=== PATIENT | male | born 1960 | race Caucasian/White ===

== ENCOUNTER 2016-06-25 01:45 | Emergency (ER) | payer OTHER ==
--- NOTE | 2016-06-25 03:24 | ED NURSING NOTES ---
Clinical Report - Nurses [facility] [address] [place] [address] 06/25/2016 1:47 Patient: CLAUDIA BELTRAN TRIAGE Chief Complaint: URINARY RETENTION and DIFFICULTY VOIDING and UNABLE TO VOID. --02:06 Khurram Choi R.N. 02:02 06/25/16. BP: 154/83. HR: 96. RR: 16. O2 saturation: 97%. Temp: 99.2 F. --02:06 Khurram Choi R.N. Weight: 79.3 kg stated. Height/Length: 70 inches Per Patient. BMI: 25.1. --02:06 Khurram Choi R.N. Medications None. --02:04 Khurram Choi R.N. Allergies No Known Drug Allergy. --02:05 Khurram Choi R.N. History Onset. (3 days ago). 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 SOCIAL HX: Alcohol use; consumes three beers a week. FALL RISK ASSESSMENT: Fall risk assessment completed. No fall risk identified. NUTRITIONAL RISK ASSESSMENT: The nutritional risk assessment revealed no deficiencies. FUNCTIONAL ASSESSMENT: Functional assessment: no impairments noted. LEARNING NEEDS ASSESSMENT: The learning needs assessment revealed no barriers. SKIN INTEGRITY ASSESSMENT: Skin integrity risk assessment completed. No skin integrity risk identified. --02:06 Khurram Choi R.N. Interventions ID band on patient. --02:06 Khurram Choi R.N. PHYSICAL ASSESSMENT Ambulatory to room. GENERAL / NEURO / PSYCH: Alert. Oriented X 4. Appears in no acute distress. HEENT: Mucous membranes are pink. RESPIRATORY: Respirations not labored. Breath sounds within normal limits. CVS: Normal heart rate and rhythm. Capillary refill less than 2 seconds. GI / : Abdomen soft. Bowel sounds within normal limits. SKIN: Skin is warm and dry. --02:07 Khurram Choi R.N. NURSING PROGRESS NOTES Patient gowned. Head of bed elevated. Reassurance given. Patient identifiers checked. Call light placed in reach. Bed placed in lowest position. Brakes of bed on. --02:07 Khurram Choi R.N. ( BLADDER SCANNER [id number]). --02:46 Arnold Langley ER Collections Professional 03:08 06/25/2016 lidocaine urojet * Topical 5 ml intraurethral numbing for catheterization --03:08 Khurram Choi R.N. Patient ID band checked for patient name and birthdate: patient confirmed. Instructions provided to collect clean catch urine and patient verbalized understanding. Catheterized urine collected with return of orange-colored urine, blood clots noted; sample sent to lab for urinalysis and culture. Specimen labeled in the presence of the patient (1100). --03:11 Khurram Choi R.N. DISPOSITION / DISCHARGE Departure time: 0410. Condition at departure: improved. No learning barriers present. Discharge instructions provided and reviewed with the patient. Reviewed warnings. Reviewed medication(s). Treatments reviewed. Reviewed referral to a urologist for followup. Patient verbalized understanding. Written instructions provided in Estonian. The patient was discharged by the physician. He was discharged home and unaccompanied at time of discharge. He left the Emergency Department ambulatory and via private vehicle. Patient driving. --04:11 Khurram Choi R.N. 04:10 06/25/16. BP: 144/84. HR: 88. RR: 18. O2 saturation: 99%. Temp: 98 F. Pain level now 06/30. --04:11 Khurram Choi R.N. Locked/Released at 06/25/2016 4:12 by Khurram Choi R.N.
--- NOTE | 2016-06-25 03:24 | ED NURSING NOTES ---
Clinical Report - Nurses [facility] [address] [place] [address] 06/25/2016 1:47 Patient: CLAUDIA BELTRAN TRIAGE Chief Complaint: URINARY RETENTION and DIFFICULTY VOIDING and UNABLE TO VOID. --02:06 Khurram Choi R.N. 02:02 06/25/16. BP: 154/83. HR: 96. RR: 16. O2 saturation: 97%. Temp: 99.2 F. --02:06 Khurram Choi R.N. Weight: 79.3 kg stated. Height/Length: 70 inches Per Patient. BMI: 25.1. --02:06 Khurram Choi R.N. Medications None. --02:04 Khurram Choi R.N. Allergies No Known Drug Allergy. --02:05 Khurram Choi R.N. History Onset. (3 days ago). 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 SOCIAL HX: Alcohol use; consumes three beers a week. FALL RISK ASSESSMENT: Fall risk assessment completed. No fall risk identified. NUTRITIONAL RISK ASSESSMENT: The nutritional risk assessment revealed no deficiencies. FUNCTIONAL ASSESSMENT: Functional assessment: no impairments noted. LEARNING NEEDS ASSESSMENT: The learning needs assessment revealed no barriers. SKIN INTEGRITY ASSESSMENT: Skin integrity risk assessment completed. No skin integrity risk identified. --02:06 Khurram Choi R.N. Interventions ID band on patient. --02:06 Khurram Choi R.N. PHYSICAL ASSESSMENT Ambulatory to room. GENERAL / NEURO / PSYCH: Alert. Oriented X 4. Appears in no acute distress. HEENT: Mucous membranes are pink. RESPIRATORY: Respirations not labored. Breath sounds within normal limits. CVS: Normal heart rate and rhythm. Capillary refill less than 2 seconds. GI / : Abdomen soft. Bowel sounds within normal limits. SKIN: Skin is warm and dry. --02:07 Khurram Choi R.N. NURSING PROGRESS NOTES Patient gowned. Head of bed elevated. Reassurance given. Patient identifiers checked. Call light placed in reach. Bed placed in lowest position. Brakes of bed on. --02:07 Khurram Choi R.N. ( BLADDER SCANNER [id number]). --02:46 Arnold Langley ER Medical Staff Assistant 03:08 06/25/2016 lidocaine urojet * Topical 5 ml intraurethral numbing for catheterization --03:08 Khurram Choi R.N. Patient ID band checked for patient name and birthdate: patient confirmed. Instructions provided to collect clean catch urine and patient verbalized understanding. Catheterized urine collected with return of orange-colored urine, blood clots noted; sample sent to lab for urinalysis and culture. Specimen labeled in the presence of the patient (1100). --03:11 Khurram Choi R.N. DISPOSITION / DISCHARGE Departure time: 0410. Condition at departure: improved. No learning barriers present. Discharge instructions provided and reviewed with the patient. Reviewed warnings. Reviewed medication(s). Treatments reviewed. Reviewed referral to a urologist for followup. Patient verbalized understanding. Written instructions provided in Libyan. The patient was discharged by the physician. He was discharged home and unaccompanied at time of discharge. He left the Emergency Department ambulatory and via private vehicle. Patient driving. --04:11 Khurram Choi R.N. 04:10 06/25/16. BP: 144/84. HR: 88. RR: 18. O2 saturation: 99%. Temp: 98 F. Pain level now 06/30. --04:11 Khurram Choi R.N. Locked/Released at 06/25/2016 4:12 by Khurram Choi R.N.
--- NOTE | 2016-06-25 03:24 | ED ORDER SUMMARY ---
..... Patient: CLAUDIA BELTRAN OrderSheet [facility] VisitID: [id number] [place] [address] 56y, M Registration Date/Time: 06/25/2016 ORDER SHEET Weight: 79.3 kg (stated) Allergies: No Known Drug Allergy GENERAL ORDERS: UA-Culture if indicated Urgent (02:02 06/25/2016 Evelyn WU) (Ack 2:06 Marcellus) (3:04 Robert R.N.) - (Straight cath with measurement of output) (02:31 06/25/2016 Evelyn WU) (3:04 Robert R.N.) MEDICATION ORDERS: - (Urojet 1 package to bedside) (02:35 06/25/2016 Evelyn WU) (3:08 Robert R.N.) IV FLUIDS: ORDER SHEET NOTES: [Electronically signed by Khurram Choi R.N. (04:12 06/25/2016)] [Electronically signed by Radha Montenegro MD (13:22 06/29/2016)] [Electronically locked/signed by Khurram Choi R.N. (04:12 06/25/2016)]
--- NOTE | 2016-06-25 03:24 | ED ORDER SUMMARY ---
..... Patient: CLAUDIA BELTRAN OrderSheet [facility] VisitID: [id number] [place] [address] 56y, M Registration Date/Time: 06/25/2016 ORDER SHEET Weight: 79.3 kg (stated) Allergies: No Known Drug Allergy GENERAL ORDERS: UA-Culture if indicated Urgent (02:02 06/25/2016 Evelyn WU) (Ack 2:06 Marcellus) (3:04 Robert R.N.) - (Straight cath with measurement of output) (02:31 06/25/2016 Evelyn WU) (3:04 Robert R.N.) MEDICATION ORDERS: - (Urojet 1 package to bedside) (02:35 06/25/2016 Evelyn WU) (3:08 Robert R.N.) IV FLUIDS: ORDER SHEET NOTES: [Electronically signed by Khurram Choi R.N. (04:12 06/25/2016)] [Electronically signed by Radha Montenegro MD (13:22 06/29/2016)] [Electronically locked/signed by Khurram Choi R.N. (04:12 06/25/2016)]
--- NOTE | 2016-06-25 03:24 | ED CLINICAL REPORT ---
Clinical Report - Physicians/Mid Levels [facility] [address] [place] [address] 06/25/2016 1:47 Patient: CLAUDIA BELTRAN Time Seen: 02:03. Arrived- By private vehicle. Historian- patient. HISTORY OF PRESENT ILLNESS Chief Complaint: URINARY RETENTION. This started yesterday and is still present. The problem is described as severe. No penile discharge, urinary frequency, genital lesion, testicular pain or urgency of urination. No flank pain, inguinal swelling or problem with the foreskin. He has had discomfort with urination (PT was dx with a UTI recently, and has had mild hematuria since.). He has been unable to void. Sexual history is noncontributory. Similar symptoms previously: None. Recent medical care: The patient was seen recently at another facility in a clinic. REVIEW OF SYSTEMS No fever, chills, flank pain, vomiting or diarrhea. No black stools, bloody stools, headache, sore throat or blurred vision. No chest pain, difficulty breathing, cough, joint pain or skin rash. No back pain. The patient has had hematuria. The patient has had abdominal pain (discomfort, since urinary retention began). All systems otherwise negative, except as recorded above. PAST HISTORY Problems: no known problems. Additional Surgeries: no known surgeries. Medications: None. Allergies: No Known Drug Allergy. SOCIAL HISTORY Never smoker. Alcohol use. No drug use. ADDITIONAL NOTES The nursing notes have been reviewed. PHYSICAL EXAM Vital Signs: 06/25/2016 02:02 BP: 154/83. HR: 96. RR: 16. O2 saturation: 97%. Temp: 99.2 F. Have been reviewed. Appearance: Alert. Oriented X3. No acute distress. ENT: Normal external inspection. Neck: Neck supple. CVS: Heart sounds normal. Respiratory: No respiratory distress. Breath sounds normal. Abdomen: Soft. Moderate tenderness in the suprapubic area. No guarding or rebound tenderness. No mass. Distention. Back: Normal external inspection. No CVA tenderness. Skin: Skin warm and dry. Normal skin color. No rash. Normal skin turgor. Extremities: Extremities exhibit normal ROM. No lower extremity edema. Neuro: Oriented X 3. No motor deficit. No sensory deficit. LABS, X-RAYS, AND EKG Pulse Oximetry: 06/25/2016 02:02 O2 saturation: 97%. (FIO2 - room air). Interpretation: normal. PROGRESS AND PROCEDURES Course of Care: 1100 cc grossly bloody urine obtained by straight cath, with complete resolution of sx. Pt was offered a Henry with leg bag, but preferred to see if he could pass urine on his own after this. Pt was advised to continue his abx, as directed. Patient counseled in person regarding the patient's stable condition, test results, diagnosis and need for follow-up. Concerns were addressed. Old medical records reviewed. Disposition: Discharged. Condition: stable and improved. CLINICAL IMPRESSION Acute urinary tract infection with cystitis. Urinary retention. INSTRUCTIONS Drink plenty of fluids. Warnings: GENERAL WARNINGS: Return or contact your physician immediately if your condition worsens or changes unexpectedly, if not improving as expected, or if other problems arise. Understanding of the discharge instructions verbalized by patient. Follow-up with: Victor Hugo Rivero MD, Urology, , [address] [address]; Cale Craft MD, Urology, , [address] [facility], [facility] Follow up in three days if not better. (Electronically signed by Radha Montenegro MD 06/29/2016 13:22)
--- NOTE | 2016-06-25 03:24 | ED CLINICAL REPORT ---
Clinical Report - Physicians/Mid Levels [facility] [address] [place] [address] 06/25/2016 1:47 Patient: CLAUDIA BELTRAN Time Seen: 02:03. Arrived- By private vehicle. Historian- patient. HISTORY OF PRESENT ILLNESS Chief Complaint: URINARY RETENTION. This started yesterday and is still present. The problem is described as severe. No penile discharge, urinary frequency, genital lesion, testicular pain or urgency of urination. No flank pain, inguinal swelling or problem with the foreskin. He has had discomfort with urination (PT was dx with a UTI recently, and has had mild hematuria since.). He has been unable to void. Sexual history is noncontributory. Similar symptoms previously: None. Recent medical care: The patient was seen recently at another facility in a clinic. REVIEW OF SYSTEMS No fever, chills, flank pain, vomiting or diarrhea. No black stools, bloody stools, headache, sore throat or blurred vision. No chest pain, difficulty breathing, cough, joint pain or skin rash. No back pain. The patient has had hematuria. The patient has had abdominal pain (discomfort, since urinary retention began). All systems otherwise negative, except as recorded above. PAST HISTORY Problems: no known problems. Additional Surgeries: no known surgeries. Medications: None. Allergies: No Known Drug Allergy. SOCIAL HISTORY Never smoker. Alcohol use. No drug use. ADDITIONAL NOTES The nursing notes have been reviewed. PHYSICAL EXAM Vital Signs: 06/25/2016 02:02 BP: 154/83. HR: 96. RR: 16. O2 saturation: 97%. Temp: 99.2 F. Have been reviewed. Appearance: Alert. Oriented X3. No acute distress. ENT: Normal external inspection. Neck: Neck supple. CVS: Heart sounds normal. Respiratory: No respiratory distress. Breath sounds normal. Abdomen: Soft. Moderate tenderness in the suprapubic area. No guarding or rebound tenderness. No mass. Distention. Back: Normal external inspection. No CVA tenderness. Skin: Skin warm and dry. Normal skin color. No rash. Normal skin turgor. Extremities: Extremities exhibit normal ROM. No lower extremity edema. Neuro: Oriented X 3. No motor deficit. No sensory deficit. LABS, X-RAYS, AND EKG Pulse Oximetry: 06/25/2016 02:02 O2 saturation: 97%. (FIO2 - room air). Interpretation: normal. PROGRESS AND PROCEDURES Course of Care: 1100 cc grossly bloody urine obtained by straight cath, with complete resolution of sx. Pt was offered a Henry with leg bag, but preferred to see if he could pass urine on his own after this. Pt was advised to continue his abx, as directed. Patient counseled in person regarding the patient's stable condition, test results, diagnosis and need for follow-up. Concerns were addressed. Old medical records reviewed. Disposition: Discharged. Condition: stable and improved. CLINICAL IMPRESSION Acute urinary tract infection with cystitis. Urinary retention. INSTRUCTIONS Drink plenty of fluids. Warnings: GENERAL WARNINGS: Return or contact your physician immediately if your condition worsens or changes unexpectedly, if not improving as expected, or if other problems arise. Understanding of the discharge instructions verbalized by patient. Follow-up with: Victor Hugo Rivero MD, Urology, , [address] [address]; Cale Craft MD, Urology, , [address] [facility], [facility] Follow up in three days if not better. (Electronically signed by Radha Montenegro MD 06/29/2016 13:22)
--- NOTE | 2016-06-29 13:23 | ED MAR SUMMARY ---
..... Medication Administration Record [facility] [address] [place] [address] Patient: CLAUDIA BELTRAN Visit ID: [id number] 56y, M Weight: 79.3 kg Height/Length: 70 in BMI: 25.1 ALLERGIES: No Known Drug Allergy Given 03:08 06/25/2016 Khurram Choi R.N. Medication Administered: lidocaine urojet *, Dose: 5 ml * Topical. Medication Ordered: - (Urojet 1 package to bedside).
--- NOTE | 2016-06-29 13:23 | ED MED RECONCILIATION SUMMARY ---
Patient: CLAUDIA BELTRAN Medication Reconciliation Report [facility] VisitID: [id number] [address] [place] [address] 56y, M Registration Date/Time: 06/25/2016 Weight: 79.3 kg Height/Length: 70 in. BMI: 25.1 ALLERGIES: No Known Drug Allergy The patient's Home Medications are listed below: NONE. The source(s) of the original Home Medication information: Not obtained. The following Medications were given to the patient in the Emergency Department: lidocaine urojet Topical 5 ml, administered: 06/25/2016 3:08:00 AM The following Medications were prescribed to the patient: None.
--- NOTE | 2016-06-29 13:23 | ED DISCHARGE INSTRUCTIONS ---
Patient: CLAUDIA BELTRAN General Instructions [facility] VisitID: [id number] [place] [address] 56y, M Registration Date/Time: 06/25/2016 Acute urinary tract infection with cystitis. Urinary retention. INSTRUCTIONS Drink plenty of fluids. Warnings: GENERAL WARNINGS: Return or contact your physician immediately if your condition worsens or changes unexpectedly, if not improving as expected, or if other problems arise. Understanding of the discharge instructions verbalized by patient. Follow-up with: Victor Hugo Rivero MD, Urology, , [address] [facility], [id number]; Cale Craft MD, Urology, , [address] [facility], [address] Follow up in three days if not better. ADDITIONAL INFORMATION Urinary Retention (Male) Urinary retention means that you are unable to pass urine, even though your bladder is full. The most common cause for this in males is a blockage of the bladder outlet by an enlarged prostate gland or a bladder infection. Certain medicines can also cause this problem. This condition is treated by insertion of a catheter into the bladder to drain the urine. This provides immediate relief. The catheter may need to remain in place for a few days to prevent a recurrence. The catheter has a balloon on the tip which was inflated after insertion. This prevents the catheter from falling out. Home Care: If an antibiotic was prescribed to treat a bladder infection, be sure to take it until finished, even if you are feeling better before it is all gone. If a catheter was left in place, it is important to keep bacteria from getting into the collection bag. Do not disconnect the catheter from the collection bag. Use a leg band to secure the drainage tube, so it does not pull on the catheter. Drain the collection bag when it becomes full using the drain spout at the bottom of the bag. Do not try to pull or remove your catheter. This will injure your urethra. It must be removed by a doctor or nurse. Follow Up with your doctor as advised. If a catheter was left in place, it can usually be removed within 3-7 days. Some conditions require that the catheter remains in longer. Follow up with your doctor to determine the right time for you. Get Prompt Medical Attention if any of the following occur: Fever of 100.4F (38C) or higher, or as directed by your healthcare provider Bladder or lower abdominal pain or fullness Abdominal swelling, nausea, vomiting or back pain Blood or urine leakage around the catheter Bloody urine coming from the catheter (if a new symptom) Weakness, dizziness or fainting Confusion or change in usual level of alertness If a catheter was left in place, return if: Catheter falls out Catheter stops draining for 6 hours You have been given the following additional information: Urinary Retention, Male (Electronically signed by Radha Montenegro MD 06/29/2016 13:22)
--- NOTE | 2016-06-29 13:23 | ED DISCHARGE INSTRUCTIONS ---
Patient: CLAUDIA BELTRAN General Instructions [facility] VisitID: [id number] [place] [address] 56y, M Registration Date/Time: 06/25/2016 Acute urinary tract infection with cystitis. Urinary retention. INSTRUCTIONS Drink plenty of fluids. Warnings: GENERAL WARNINGS: Return or contact your physician immediately if your condition worsens or changes unexpectedly, if not improving as expected, or if other problems arise. Understanding of the discharge instructions verbalized by patient. Follow-up with: Victor Hugo Rivero MD, Urology, , [address] [facility], [id number]; Cale Craft MD, Urology, , [address] [facility], [id number] Follow up in three days if not better. ADDITIONAL INFORMATION Urinary Retention (Male) Urinary retention means that you are unable to pass urine, even though your bladder is full. The most common cause for this in males is a blockage of the bladder outlet by an enlarged prostate gland or a bladder infection. Certain medicines can also cause this problem. This condition is treated by insertion of a catheter into the bladder to drain the urine. This provides immediate relief. The catheter may need to remain in place for a few days to prevent a recurrence. The catheter has a balloon on the tip which was inflated after insertion. This prevents the catheter from falling out. Home Care: If an antibiotic was prescribed to treat a bladder infection, be sure to take it until finished, even if you are feeling better before it is all gone. If a catheter was left in place, it is important to keep bacteria from getting into the collection bag. Do not disconnect the catheter from the collection bag. Use a leg band to secure the drainage tube, so it does not pull on the catheter. Drain the collection bag when it becomes full using the drain spout at the bottom of the bag. Do not try to pull or remove your catheter. This will injure your urethra. It must be removed by a doctor or nurse. Follow Up with your doctor as advised. If a catheter was left in place, it can usually be removed within 3-7 days. Some conditions require that the catheter remains in longer. Follow up with your doctor to determine the right time for you. Get Prompt Medical Attention if any of the following occur: Fever of 100.4F (38C) or higher, or as directed by your healthcare provider Bladder or lower abdominal pain or fullness Abdominal swelling, nausea, vomiting or back pain Blood or urine leakage around the catheter Bloody urine coming from the catheter (if a new symptom) Weakness, dizziness or fainting Confusion or change in usual level of alertness If a catheter was left in place, return if: Catheter falls out Catheter stops draining for 6 hours You have been given the following additional information: Urinary Retention, Male (Electronically signed by Radha Montenegro MD 06/29/2016 13:22)
--- NOTE | 2016-06-29 13:23 | ED MED RECONCILIATION SUMMARY ---
Patient: CLAUDIA BELTRAN Medication Reconciliation Report [facility] VisitID: [id number] [address] [place] [address] 56y, M Registration Date/Time: 06/25/2016 Weight: 79.3 kg Height/Length: 70 in. BMI: 25.1 ALLERGIES: No Known Drug Allergy The patient's Home Medications are listed below: NONE. The source(s) of the original Home Medication information: Not obtained. The following Medications were given to the patient in the Emergency Department: lidocaine urojet Topical 5 ml, administered: 06/25/2016 3:08:00 AM The following Medications were prescribed to the patient: None.
--- NOTE | 2016-06-29 13:23 | ED MAR SUMMARY ---
..... Medication Administration Record [facility] [address] [place] [address] Patient: CLAUDIA BELTRAN Visit ID: [id number] 56y, M Weight: 79.3 kg Height/Length: 70 in BMI: 25.1 ALLERGIES: No Known Drug Allergy Given 03:08 06/25/2016 Khurram Choi R.N. Medication Administered: lidocaine urojet *, Dose: 5 ml * Topical. Medication Ordered: - (Urojet 1 package to bedside).
== END 2016-06-25 04:00 | disposition home or self-care (01) ==
LOC: ED SRH 01:45
DX: N30.00 Acute cystitis without hematuria (principal); R33.9 Retention of urine, unspecified; Z79.2 Long term (current) use of antibiotics
CPT/HCPCS: 90004; 90070; 90469; 91672

== ENCOUNTER 2016-06-25 19:52 | Emergency (ER) | payer OTHER ==
--- NOTE | 2016-06-25 21:02 | ED ORDER SUMMARY ---
..... Patient: CLAUDIA BELTRAN OrderSheet [facility] VisitID: [id number] [place] [address] 56y, M Registration Date/Time: 06/25/2016 ORDER SHEET Weight: 79.3 kg (stated) Allergies: No Known Drug Allergy GENERAL ORDERS: UA-Culture if indicated Urgent (20:20 06/25/2016 MWinterer R.N. per protocol) (20:30 Ashley R.NCaroline) Henry Catheter (20:49 06/25/2016 Twan WU) (Ack 20:55 MWinterer R.N.) (21:05 MWinterer R.N.) MEDICATION ORDERS: IV FLUIDS: ORDER SHEET NOTES: [Electronically signed by Rocío Dyson R.N. (21:53 06/25/2016)] [Electronically signed by Eb Amezquita MD (11:12 06/26/2016)] [Electronically locked/signed by Rocío Dyson R.N. (21:53 06/25/2016)]
--- NOTE | 2016-06-25 21:02 | ED NURSING NOTES ---
Clinical Report - Nurses [facility] [place] [address] 06/25/2016 19:52 Patient: CLAUDIA BELTRAN TRIAGE Acuity: LEVEL 3. Chief Complaint: URINARY RETENTION. Alert. No acute distress. SEPSIS SCREEN: Sepsis Screen. Negative (no infection suspected/documented). --20:06 Rocío Dyson R.N. 20:00 06/25/16. BP: 168/84. HR: 106. RR: 20. O2 saturation: 99%. Temp: 98.3 F (oral). Pain level now: 10/28. --20:06 Rocío Dyson R.N. Weight: 79.3 kg stated. Height/Length: 70 inches Per Patient. BMI: 25.1. --20:03 Rocío Dyson R.N. Medications Bactrim Oral. --20:02 Rocío Dyson R.N. Medication/allergy information source: the patient. --20:06 Rocío Dyson R.N. Allergies No Known Drug Allergy. --20:02 Rocío Dyson R.N. History Arrived by private vehicle. Historian: patient. Unaccompanied. Primary physician (heather). This started today. SOCIAL HX: Never smoker. Occasional alcohol use. No drug use. FALL RISK ASSESSMENT: Fall risk assessment completed. No fall risk identified. NUTRITIONAL RISK ASSESSMENT: The nutritional risk assessment revealed no deficiencies. FUNCTIONAL ASSESSMENT: Functional assessment: no impairments noted. LEARNING NEEDS ASSESSMENT: The learning needs assessment revealed no barriers. SKIN INTEGRITY ASSESSMENT: Skin integrity risk assessment completed. No skin integrity risk identified. --20:06 Rocío Dyson R.N. PROBLEMS: UTI - Urinary Tract Infection [RuleOut]. --20:54 Eb Amezquita MD Urinary Retention [RuleOut]. --20:54 Eb Amezquita MD The following entry was modified by Eb Amezquita MD, 20:54 <<STRICKEN ENTRY-- UTI - Urinary Tract Infection. --03:21 Rocío Dyson R.N. --END STRIKE>> The following entry was modified by Eb Amezquita MD, 20:54 <<STRICKEN ENTRY-- Urinary Retention. --03:21 Rocío Dyson R.N. --END STRIKE>>. Assessment GENERAL / NEURO / PSYCH: Alert. Oriented X 4. Appears in no acute distress. [place] Coma Scale: 15- eyes open spontaneously (4); best verbal response- oriented x 4 (5); best motor response- obeys commands (6). Patient appears calm and cooperative. RESPIRATORY: Respirations not labored. CVS: Capillary refill less than 2 seconds. GI / : Abdomen soft and nontender. SKIN: Mucous membranes are pink. Skin is warm and dry. --20:06 Rocío Dyson R.N. Interventions ID band on patient. To treatment room. --20: Rocío Dyson R.N. PHYSICAL ASSESSMENT 20:06/25/16. Ambulatory to room. GENERAL / NEURO / PSYCH: Alert. Oriented X 4. Appears in no acute distress. HEENT: Mucous membranes are pink. RESPIRATORY: Respirations not labored. CVS: Capillary refill less than 2 seconds. GI / : Abdomen soft. SKIN: Skin is warm and dry. --20: Rocío Dyson R.N. NURSING PROGRESS NOTES 20:06/25/16. Patient gowned. Reassurance given. Two patient identifiers checked. Call light placed in reach. Side rails up x 1. Bed placed in lowest position. Brakes of bed on. Patient ready for evaluation- chart flagged. --20:07 Rocío Dyson R.N. 20:06/25/16. ( Bladder scan result: 1000 mL). --20: Rocío Dyson R.N. 20:06/25/16. Patient ID band checked for patient name and birthdate. Clean catch urine collected with return of yellow-colored clear urine. Specimen labeled in the presence of the patient. ( Pt ambulated to and provided urine sample. Pt states "I was able to pee a fair amount."). --20:22 Rocío Dyson R.N. 14 fr coude catheter placed. Reason for indwelling catheter: retention. During procedure hand hygiene observed and sterile equipment and aseptic technique used. Return of 600 mL yellow-colored urine; attached to leg bag. He tolerated procedure fair (x 2 RNs, 15 minutes). --21:06 Leonardo Quintanilla R.N. DISPOSITION / DISCHARGE Departure time: 21:10 Jun 25 2016. Condition at departure: improved and stable. No learning barriers present. Discharge instructions provided and reviewed with the patient. Reviewed medication(s) side effects, precautions, dosing and course information. Prescription(s) given to the patient. Patient verbalized understanding. Written instructions provided in Barbadian. The patient was discharged by the physician. He was discharged home. He left the Emergency Department ambulatory and via private vehicle. Patient driving. --21:51 Rocío Dyson R.N. 21:49 06/25/16. BP: 152/87. HR: 102. RR: 12. O2 saturation: 98% on room air. Temp: 98.8 F (oral). Pain level now: 08/28. --21:51 Rocío Dyson R.N. Locked/Released at 06/25/2016 21:53 by Rocío Dyson R.N.
--- NOTE | 2016-06-25 21:02 | ED ORDER SUMMARY ---
..... Patient: CLAUDIA BELTRNA OrderSheet [facility] VisitID: [id number] [place] [address] 56y, M Registration Date/Time: 06/25/2016 ORDER SHEET Weight: 79.3 kg (stated) Allergies: No Known Drug Allergy GENERAL ORDERS: UA-Culture if indicated Urgent (20:20 06/25/2016 MWinterer R.N. per protocol) (20:30 Ashley R.NCaroline) Henry Catheter (20:49 06/25/2016 Twan WU) (Ack 20:55 MWinterer R.N.) (21:05 MWinterer R.N.) MEDICATION ORDERS: IV FLUIDS: ORDER SHEET NOTES: [Electronically signed by Rocío Dyson R.N. (21:53 06/25/2016)] [Electronically signed by Eb Amezquita MD (11:12 06/26/2016)] [Electronically locked/signed by Rocío Dyson R.N. (21:53 06/25/2016)]
--- NOTE | 2016-06-25 21:02 | ED CLINICAL REPORT ---
Clinical Report - Physicians/Mid Levels [facility] [address] [place] [address] 06/25/2016 19:52 Patient: CLAUDIA BELTRAN Time Seen: 20:02. Arrived- By private vehicle. Historian- patient. HISTORY OF PRESENT ILLNESS Chief Complaint: URINARY RETENTION. This started last night and is still present. The problem is described as severe. It was abrupt in onset and has been intermittent and waxing/waning. The patient has had discomfort with urination and urgency of urination and been unable to void, and voiding small amounts. The patient has had urinary frequency. (patient was seen at another clinic last week and was diagnosed with urinary tract infection and was on Bactrim. However in the middle of the night he had a strong urge to void but was not able to do so. He was seen here early this morning in the emergency room and catheterizationof his bladder was performed releasing a large amount of urine. He elected not to have the catheter left in place. He returns nowagain feeling that his bladder is very full but he is only able to micturate a few drops. He says that he has had PSA testing done in the past and that this was normal and at a routine physical examination last year was told that his prostate exam was unremarkable.). REVIEW OF SYSTEMS No chills, fever, sweats, calf pain or chest pain. No cough, difficulty breathing, pedal edema, palpitations or constipation. No diarrhea, nausea or vomiting. All systems otherwise negative, except as recorded above. PAST HISTORY Medications: Bactrim Oral. Allergies: No Known Drug Allergy. SOCIAL HISTORY Never smoker. Occasional alcohol use. No drug use. FAMILY HISTORY Denies family medical history. ADDITIONAL NOTES The nursing notes have been reviewed. PHYSICAL EXAM Vital Signs: 06/25/2016 20:00 BP: 168/84. HR: 106. RR: 20. O2 saturation: 99%. Temp: 98.3 F. Pain level now: 6/10. Have been reviewed. Appearance: Alert. ENT: Pharynx normal. Neck: Neck supple. CVS: Heart sounds normal. Respiratory: Breath sounds normal. Abdomen: Soft. Mild tenderness in the suprapubic area. Bowel sounds normal. No organomegaly. No mass. Back: Normal external inspection. No CVA tenderness. Rectal: Abnormal digital exam: enlarged prostate (The left half of the prostate was markedly enlarged). Stool heme negative. (POC test reference range: negative). Skin: Skin warm and dry. Normal skin color. Normal skin turgor. Extremities: Extremities exhibit normal ROM. No lower extremity edema. LABS, X-RAYS, AND EKG Laboratory Tests: UA-Culture if indicated: (NAKIA: 06/25/2016 20:11) ( MsgRcvd 06/25/2016 20:59) Final results Test Result Flag Units (Reference) URINE COLOR YELLOW URINE APPEARANCE CLEAR URINE GLUCOSE NEGATIVE (NEGATIVE) URINE BILIRUBIN NEGATIVE (NEGATIVE) URINE KETONE NEGATIVE (NEGATIVE) URINE SPECIFIC GRAVITY 1.020 (1.010-1.030) URINE PH 6.0 (5.0-8.0) URINE PROTEIN NEGATIVE (NEGATIVE) URINE UROBILINOGEN 0.2 EU/dL (0.2-1.0) URINE NITRITE POSITIVE (NEGATIVE) URINE BLOOD 3+ (NEGATIVE) URINE LEUK ESTERASE NEGATIVE (NEGATIVE) URINE RBC 50-75 rbc/hpf (0-1) URINE WBC 5-10 wbc/hpf (0-1) URINE EPITHELIAL CELLS 1-3 EPI/hpf (0-5) URINE BACTERIA FEW (1+) (NONE SEEN) URINE COMMENT CULTURE INDICATED URINE CULTURES ARE SET-UP BASED ON THE FOLLOWING CRITERIA:POSITIVE NITRITEPOSITIVE LEUKOCYTE ESTERASEGREATER THAN 10 WHITE BLOOD CELLSMODERATE (2+) OR GREATER BACTERIA . PROGRESS AND PROCEDURES Course of Care: Patient is stable. Patient/family counseled. Old medical records reviewed. Disposition: Discharged. Condition: stable. CLINICAL IMPRESSION Acute urinary tract infection. Urinary retention. Prostatic mass. Possible benign prostatic hypertrophy. INSTRUCTIONS Keep catheter in place; care as directed until released. Drink plenty of fluids. Warnings: Further evaluation is necessary. GENERAL WARNINGS: Return or contact your physician immediately if your condition worsens or changes unexpectedly, if not improving as expected, or if other problems arise. Your Current Medications: STOP TAKING THE FOLLOWING MEDICATIONS: Bactrim Oral. Prescription Medications: Cipro 500 mg: take 1 tab orally every 12 hours for 10 days. Dispense twenty (20). No refills. Substitution is permissible. Follow-up: Follow up with a urologist Dr. Estrada - call the office at in three days. Call for the next available appointment. Understanding of the discharge instructions verbalized by patient. (Electronically signed by Eb Amezquita MD 06/26/2016 11:12)
--- NOTE | 2016-06-26 11:13 | ED MED RECONCILIATION SUMMARY ---
Patient: CLAUDIA BELTRAN Medication Reconciliation Report [facility] VisitID: [id number] [address] [place] [address] 56y, M Registration Date/Time: 06/25/2016 Weight: 79.3 kg Height/Length: 70 in. BMI: 25.1 ALLERGIES: No Known Drug Allergy The patient's Home Medications are listed below: STOP TAKING THE FOLLOWING MEDICATIONS: Bactrim Oral The source(s) of the original Home Medication information: patient The following Medications were given to the patient in the Emergency Department: None. The following Medications were prescribed to the patient: Cipro 500 mg: take 1 tab orally every 12 hours for 10 days. Dispense twenty (20). No refills. Substitution is permissible. -- Eb Amezquita MD
--- NOTE | 2016-06-26 11:13 | ED DISCHARGE INSTRUCTIONS ---
Patient: CLAUDIA BELTRAN General Instructions [facility] VisitID: [id number] [place] [address] 56y, M Registration Date/Time: 06/25/2016 Acute urinary tract infection. Urinary retention. Prostatic mass. INSTRUCTIONS Keep catheter in place; care as directed until released. Drink plenty of fluids. Warnings: Further evaluation is necessary. GENERAL WARNINGS: Return or contact your physician immediately if your condition worsens or changes unexpectedly, if not improving as expected, or if other problems arise. Your Current Medications: STOP TAKING THE FOLLOWING MEDICATIONS: Bactrim Oral. Prescription Medications: Cipro 500 mg: take 1 tab orally every 12 hours for 10 days. Dispense twenty (20). No refills. Substitution is permissible. Follow-up: Follow up with a urologist Dr. Estrada - call the office at in three days. Call for the next available appointment. Understanding of the discharge instructions verbalized by patient. ADDITIONAL INFORMATION Bladder Infection,Male (Adult) A bladder infection ("cystitis" or "UTI") usually causes a constant urge to urinate, and a burning when passing urine. Urine may be cloudy, smelly or dark. There may be also be pain in the lower abdomen. Cystitis in males is not common. It may be caused by a partial blockage in the urinary system that keeps the bladder from emptying completely. This is most often related to an enlarged prostate gland. Home Care: Drink lots of fluids (at least 6-8 glasses a day). This will flush the bacteria out of your bladder. Avoid sexual intercourse until your symptoms are gone. Avoid caffeine, alcohol, and spicy foods. They could irritate the bladder. A bladder infection is treated with antibiotics. You may also be given Pyridium (generic - phenazopyridine) to reduce burning with urination. This will cause urine to become a bright orange color, which can stain clothing. Follow Up with your doctor or this facility if ALL symptoms have not cleared within five days. It is important to keep your follow up appointment to discuss with your doctor the need for further tests of the urinary tract. Get Prompt Medical Attention if any of the following occur: Fever of 100.4F (38C) or higher, or as directed by your healthcare provider No improvement by the third day of treatment Increasing back or abdominal pain Repeated vomiting; unable to keep medicine down Weakness, dizziness or fainting Urinary Retention (Male) Urinary retention means that you are unable to pass urine, even though your bladder is full. The most common cause for this in males is a blockage of the bladder outlet by an enlarged prostate gland or a bladder infection. Certain medicines can also cause this problem. This condition is treated by insertion of a catheter into the bladder to drain the urine. This provides immediate relief. The catheter may need to remain in place for a few days to prevent a recurrence. The catheter has a balloon on the tip which was inflated after insertion. This prevents the catheter from falling out. Home Care: If an antibiotic was prescribed to treat a bladder infection, be sure to take it until finished, even if you are feeling better before it is all gone. If a catheter was left in place, it is important to keep bacteria from getting into the collection bag. Do not disconnect the catheter from the collection bag. Use a leg band to secure the drainage tube, so it does not pull on the catheter. Drain the collection bag when it becomes full using the drain spout at the bottom of the bag. Do not try to pull or remove your catheter. This will injure your urethra. It must be removed by a doctor or nurse. Follow Up with your doctor as advised. If a catheter was left in place, it can usually be removed within 3-7 days. Some conditions require that the catheter remains in longer. Follow up with your doctor to determine the right time for you. Get Prompt Medical Attention if any of the following occur: Fever of 100.4F (38C) or higher, or as directed by your healthcare provider Bladder or lower abdominal pain or fullness Abdominal swelling, nausea, vomiting or back pain Blood or urine leakage around the catheter Bloody urine coming from the catheter (if a new symptom) Weakness, dizziness or fainting Confusion or change in usual level of alertness If a catheter was left in place, return if: Catheter falls out Catheter stops draining for 6 hours Bph (Enlarged Prostate) The prostate is a gland at the base of the bladder. As some men get older, the prostate may begin to increase in size. This problem is called benign prostatic hyperplasia (BPH). BPH puts pressure on the urethra. This is the tube that carries urine from the bladder to the penis. It may interfere with the flow of urine. It may also keep the bladder from emptying fully. Symptoms of BPH include trouble starting urination and feeling as though the bladder isnt emptying all the way. It also includes a weak urine stream, dribbling and leaking of urine, and frequent and urgent urination (especially at night). BPH can increase the risk of urinary infections. It can also block off urine flow completely. If this occurs, a thin tube (catheter) may be passed into the bladder to help drain urine. If symptoms are mild, no treatment may be needed at this time. If symptoms are more severe, treatment is likely needed. The goal of treatment is to improve urine flow and reduce symptoms. Treatments can include medications and procedures. Your doctor will discuss treatment options with you as needed. Home Care: Urinate as soon as you feel the urge. Do not try to hold your urine. Do not limit your fluid intake during the day. Drink 6 to 8 glasses of water or liquids a day. This prevents bacteria from building up in the bladder. Avoid drinking fluids after dinner. This may reduce urination during the night. Avoid medications that can worsen your symptoms. These include certain cold and allergy medications and antidepressants. Diuretics used for high blood pressure can also worsen symptoms. Talk to your doctor about the medications you take. Other drugs may work better for you. Prostate Cancer Screening: BPH does not increase the risk of prostate cancer. But because prostate cancer is a common cancer in men, screening is recommended for all men in general. This may help detect the cancer in its early stages when treatment is most effective. Screening often begins at age 50. Or it may be begin earlier if youre at higher risk. Factors that can increase the risk of prostate cancer include being -Tajik or having a father or brother who had prostate cancer. A high-fat diet may also increase the risk of prostate cancer. Follow Up with your doctor or urologist as told. To learn more, go to: National Kidney & Urologic Diseases Information Clearinghouse kidney.niddk.nih.gov, 040-7634146 Get Prompt Medical Attention if any of the following occur: Fever of 100.4F (38.0C) or higher, or as directed by your healthcare provider Unable to pass urine for 8 hours Increasing pressure or pain in your bladder (lower abdomen) Blood in the urine Increasing low back pain, not related to injury Symptoms of urinary infection (increased urge to urinate, burning when passing urine, foul-smelling urine) Henry Catheter Care A Henry catheter is a rubber tube that is placed through the urethra (opening where urine comes out) and into the bladder. This helps drain urine from the bladder. There is a small balloon on the end of the tube that is inflated after insertion. This keeps the catheter from sliding out of the bladder. A Henry catheter is used to treat urinary retention (unable to pass urine). It is also used when there is incontinence (loss of bladder control). Home Care: Finish taking any prescribed antibiotic even if you are feeling better before then. It is important to keep bacteria from getting into the collection bag. Do not disconnect the catheter from the collection bag. Use a leg band to secure the drainage tube, so it does not pull on the catheter. Drain the collection bag when it becomes full using the drain spout at the bottom of the bag. Do not try to pull or remove your catheter. This will injure your urethra. It must be removed by a doctor or nurse. Follow Up with your doctor, or as advised, for repeat urine testing and catheter removal or replacement. Get Prompt Medical Attention if any of the following occur: Fever of 100.4F (38C) or higher, or as directed by your healthcare provider Bladder pain or fullness Abdominal swelling, nausea or vomiting or back pain Blood or urine leakage around the catheter Bloody urine coming from the catheter (if a new symptom) Catheter falls out Catheter stops draining for 6 hours Weakness, dizziness or fainting Ciprofloxacin Hydrochloride Oral tablet What is this medicine? CIPROFLOXACIN (sip porfirio FLOX a sin) is a quinolone antibiotic. It is used to treat certain kinds of bacterial infections. It will not work for colds, flu, or other viral infections. How should I use this medicine? Take this medicine by mouth with a glass of water. Follow the directions on the prescription label. Take your medicine at regular intervals. Do not take your medicine more often than directed. Take all of your medicine as directed even if you think your are better. Do not skip doses or stop your medicine early. You can take this medicine with food or on an empty stomach. It can be taken with a meal that contains dairy or calcium, but do not take it alone with a dairy product, like milk or yogurt or calcium-fortified juice. A special MedGuide will be given to you by the pharmacist with each prescription and refill. Be sure to read this information carefully each time. Talk to your bean picker regarding the use of this medicine in children. Special care may be needed. What side effects may I notice from receiving this medicine? Side effects that you should report to your doctor or health infant caregiver as soon as possible: - allergic reactions like skin rash, itching or hives, swelling of the face, lips, or tongue - breathing problems - confusion, nightmares or hallucinations - feeling faint or lightheaded, falls - irregular heartbeat - joint, muscle or tendon pain or swelling - pain or trouble passing urine -persistent headache with or without blurred vision - redness, blistering, peeling or loosening of the skin, including inside the mouth - seizure - unusual pain, numbness, tingling, or weakness Side effects that usually do not require medical attention (report to your doctor or health infant caregiver if they continue or are bothersome): - diarrhea - nausea or stomach upset - white patches or sores in the mouth What may interact with this medicine? Do not take this medicine with any of the following medications: cisapride droperidol terfenadine tizanidine This medicine may also interact with the following medications: antacids caffeine cyclosporin didanosine (ddI) buffered tablets or powder medicines for diabetes medicines for inflammation like ibuprofen, naproxen methotrexate multivitamins omeprazole phenytoin probenecid sucralfate theophylline warfarin What if I miss a dose? If you miss a dose, take it as soon as you can. If it is almost time for your next dose, take only that dose. Do not take double or extra doses. Where should I keep my medicine? Keep out of the reach of children. Store at room temperature below 30 degrees C (86 degrees F). Keep container tightly closed. Throw away any unused medicine after the expiration date. What should I tell my health care provider before I take this medicine? They need to know if you have any of these conditions: -bone problems -cerebral disease -joint problems -irregular heartbeat -kidney disease -liver disease -myasthenia gravis -seizure disorder -tendon problems -an unusual or allergic reaction to ciprofloxacin, other antibiotics or medicines, foods, dyes, or preservatives - or trying to get -breast-feeding What should I watch for while using this medicine? Tell your doctor or health infant caregiver if your symptoms do not improve. Do not treat diarrhea with over the counter products. Contact your doctor if you have diarrhea that lasts more than 2 days or if it is severe and watery. You may get drowsy or dizzy. Do not drive, use machinery, or do anything that needs mental alertness until you know how this medicine affects you. Do not stand or sit up quickly, especially if you are an older patient. This reduces the risk of dizzy or fainting spells. This medicine can make you more sensitive to the sun. Keep out of the sun. If you cannot avoid being in the sun, wear protective clothing and use sunscreen. Do not use sun lamps or tanning beds/booths. Avoid antacids, aluminum, calcium, iron, magnesium, and zinc products for 6 hours before and 2 hours after taking a dose of this medicine. You have been given the following additional information: Bladder Infection, Male (Adult) Urinary Retention, Male BPH (Enlarged Prostate) Henry Catheter, Care Ciprofloxacin Hydrochloride Oral tablet (Electronically signed by Eb Amezquita MD 06/26/2016 11:12)
--- NOTE | 2016-06-26 11:13 | ED MAR SUMMARY ---
..... Medication Administration Record [facility] [address] [place], [place] [id number] Patient: RUBY CLAUDIA M Visit ID: [id number] 56y, M Weight: 79.3 kg Height/Length: 70 in BMI: 25.1 ALLERGIES: No Known Drug Allergy
--- NOTE | 2016-06-26 11:13 | ED MAR SUMMARY ---
..... Medication Administration Record [facility] [address] [place], [place] [id number] Patient: RUBY CLAUDIA M Visit ID: [id number] 56y, M Weight: 79.3 kg Height/Length: 70 in BMI: 25.1 ALLERGIES: No Known Drug Allergy
--- NOTE | 2016-06-26 11:13 | ED MED RECONCILIATION SUMMARY ---
Patient: CLAUDIA BELTRAN Medication Reconciliation Report [facility] VisitID: [id number] [address] [place] [address] 56y, M Registration Date/Time: 06/25/2016 Weight: 79.3 kg Height/Length: 70 in. BMI: 25.1 ALLERGIES: No Known Drug Allergy The patient's Home Medications are listed below: STOP TAKING THE FOLLOWING MEDICATIONS: Bactrim Oral The source(s) of the original Home Medication information: patient The following Medications were given to the patient in the Emergency Department: None. The following Medications were prescribed to the patient: Cipro 500 mg: take 1 tab orally every 12 hours for 10 days. Dispense twenty (20). No refills. Substitution is permissible. -- Eb Amezquita MD
== END 2016-06-25 21:10 | disposition home or self-care (01) ==
LOC: ED SRH 19:52
DX: N40.1 Benign prostatic hyperplasia with lower urinary tract symptoms (principal); R33.8 Other retention of urine; N39.0 Urinary tract infection, site not specified
CPT/HCPCS: 90004; 90469